=== PATIENT | female | born 1935 | race Caucasian/White ===

== ENCOUNTER 2020-08-15 23:36 | Emergency (ER) | payer MEDICARE ==
[2020-08-15] MEDS ORDERED: Lidocaine 1% w/Epinephrine 1:100K 20 ML VIAL ONE (23:50)
[2020-08-15] MEDS ORDERED: Bacitracin 1 PK ONE (23:50)
--- NOTE | 2020-08-16 06:59 | CT ---
PRELIMINARY REPORT/[facility]/EMERGENCY AFTER HOURS PROCEDURE EXAM: CT Head Without Intravenous Contrast. CLINICAL HISTORY: Pt fell while attempting to sit in a rolling walker. Hit head; pt on blood thinners TECHNIQUE: Axial computed tomography images of the head/brain without intravenous contrast. COMPARISON: None provided. FINDINGS: BRAIN: No acute intraparenchymal hemorrhage. No mass lesion. No CT evidence for acute territorial infarct. N o midline shift or extra-axial collection. Mild generalized cerebral atrophy. Arteriosclerosis. VENTRICLES: No hydrocephalus. ORBITS: The orbits are unremarkable. SINUSES AND MASTOIDS: The paranasal sinuses are clear. Effusion in the right mastoid cells. SOFT TISSUES: No significant facial or scalp soft tissue swelling evident. No radiopaque foreign body is seen. BONES: No acute skull fracture. IMPRESSION: No acute intracranial abnormality. Mild generalized cerebral atrophy. ELECTRONICALLY SIGNED BY: Jose Escalera MD Aug 16, 2020 12:25:57 AM [facility] This report is intended for review by the ordering physician only, in accordance of law. If you recei ve this report in error, please call [facility] at [phone]. FINAL REPORT Final report by Dr. Villanueva Emergency after-hours study CT BRAIN NONCONTRAST: DATE: 08/16/2020 12:06 AM HISTORY: 85-year-old female status post acute head trauma from fall. FINDINGS: There is no evidence of acute intra-axial or extra-axial hemorrhage. There is no midline shift or any other mass effect. There is no extra-axial fluid collection. There is no evidence of obstructive hydrocephalus. Calvarium is intact. Agree with preliminary report by [facility]. IMPRESSION: No acute intracranial findings. Transcribed Date/Time: 08/16/2020 7:50 AM
--- NOTE | 2020-08-16 07:02 | CT ---
PRELIMINARY REPORT/[facility]/EMERGENCY AFTER HOURS PROCEDURE EXAM: CT Cervical Spine Without Intravenous Contrast. CLINICAL HISTORY: Pt fell while attempting to sit in a rolling walker. Hit head; pt on blood thinners TECHNIQUE: Axial computed tomography images of the cervical spine without intravenous contrast. Sagittal and cor onal reformations performed. COMPARISON: None provided. FINDINGS: BONES: No acute fracture or focal osseous lesion. Bony alignment is anatomic. DISCS / DEGENERATIVE CHANGES: Multilevel disc narrowing and osteophytosis, severe at C5-C6 and C6-C7. The bones are osteopenic. M ultilevel facet spondylosis. Moderate left-sided foraminal stenosis at C3-C4. Mild right and severe left foraminal stenosis at C4 -C5. Severe bilateral foraminal stenosis at C5-C6. Severe bilateral foraminal stenosis at C6-C7. SOFT TISSUES: No prevertebral soft tissue swelling. No apical pneumothorax. IMPRESSION: No acute cervical spine abnormality. Multilevel degenerative disc disease, severe at C5-C6 and C6-C7. Multilevel foraminal stenosis, candie re at several levels. ELECTRONICALLY SIGNED BY: Jose Escalera MD Aug 16, 2020 12:27:28 AM [facility] This report is intended for review by the ordering physician only, in accordance of law. If you recei ve this report in error, please call [facility] at [phone]. FINAL REPORT Final report by Dr. Villanueva Emergency after-hours study CT CERVICAL SPINE NONCONTRAST: DATE: 08/16/2020 12:05 AM HISTORY: cervical trauma 85-year-old female status post fall. FINDINGS: There are no jumped or perched facets. There is no evidence of acute fracture. The vertebral body hei ghts are maintained. There is no prevertebral soft tissue swelling. There are degenerative disc changes and facet osteoarthrosis. Agree with preliminary report by [facility]. IMPRESSION: 1) Cervical spondylosis. 2) no evidence of acute fracture or acute traumatic subluxation. Transcribed Date/Time: 08/16/2020 7:52 AM
--- NOTE | 2020-08-16 07:20 | RAD ---
RADIOGRAPH LEFT HAND 3VIEWS: DATE: 08/16/2020 12:01 AM HISTORY: 85-year-old female with acute traumatic left hand pain after fall FINDINGS: There is no dislocation. No fracture is identified. There is diffuse severe osteopenia, which could o bscure a nondisplaced or minimally displaced fracture. IMPRESSION: 1. No fracture identified. 2. Severe osteoporosis.
--- NOTE | 2020-08-16 07:22 | RAD ---
Radiograph pelvis one view: 08/15/2020 11:58 PM HISTORY: 85-year-old female with acute traumatic pelvic pain due to fall. FINDINGS: There is diffuse osteopenia. Although no displaced fracture is identified, the osteopenia and the ove rlying bowel gas and stool, could obscure a nondisplaced or mildly displaced acute fracture. There is no dislocation of the hips. IMPRESSION: 1. No acute fracture identified. 2. Osteoporosis
== END 2020-08-16 02:20 | disposition home or self-care (01) ==
LOC: ERS 23:36
DX: S61.412A Laceration without foreign body of left hand, initial encounter (principal); I25.10 Atherosclerotic heart disease of native coronary artery without angina pectoris; I48.91 Unspecified atrial fibrillation; E78.5 Hyperlipidemia, unspecified; E78.00 Pure hypercholesterolemia, unspecified; J44.9 Chronic obstructive pulmonary disease, unspecified; I12.9 Hypertensive chronic kidney disease with stage 1 through stage 4 chronic kidney disease, or unspecified chronic kidney disease; E11.22 Type 2 diabetes mellitus with diabetic chronic kidney disease; N18.4 Chronic kidney disease, stage 4 (severe); V29.9XXA Motorcycle rider (driver) (passenger) injured in unspecified traffic accident, initial encounter; Z79.899 Other long term (current) drug therapy; Z79.01 Long term (current) use of anticoagulants
CPT/HCPCS: 12002; 70450; 72125; 72170